=== PATIENT | female | born 1950 | race Caucasian/White ===

== ENCOUNTER 2016-11-04 10:26 | Emergency (ER) | payer OTHER ==
[~2016-11-04] VITALS: Ht 170.2 cm; Wt 65.9 kg
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
[2016-11-04 10:31] VITALS: BP 149/73; PULSE 78; RESP 20; O2SAT 99
[2016-11-04] MEDS ORDERED: Ondansetron 2 mg/mL 2 mL Inj IVPUSH PRN (10:50)
[2016-11-04 11:11] VITALS: BP 142/74; PULSE 75; RESP 20; O2SAT 98
[2016-11-04] MEDS: HYDROmorphone 0.5 mg/0.5 mL iSecure Syringe IVPUSH PRN ×2 (11:19→12:05)
[2016-11-04 11:20] LABS: BASOPHILS % (AUTO) 0 % (0-3); EOSINOPHILS % (AUTO) 0.6 % (0-5); MONOCYTES % (AUTO) 5.8 % (4-12); Mean Corpuscular Volume 89.6 fL (81-100); NEUTROPHILS % (AUTO) 75.1 % (40-74); Platelet Count 202 bil/L (150-400)
[2016-11-04 11:33] LABS: INR 0.94 ratio
[2016-11-04 11:48] LABS: APPEARANCE,URINE HAZY (CLEAR,HAZY); COLOR,URINE STRAW (YELLOW); OCCULT BLOOD,URINE NEGATIVE (NEGATIVE); UROBILINOGEN,URINE NORMAL (NORMAL)
[2016-11-04 11:53] VITALS: BP 137/75; PULSE 78; RESP 20; O2SAT 100
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
[2016-11-04 13:51] VITALS: BP 125/84; PULSE 74; RESP 20; O2SAT 98
[2016-11-04] MEDS ORDERED: CYCL5TAB PO (13:51)
[2016-11-04] MEDS ORDERED: HYDR-4003 PO (13:51)
[2016-11-04 14:16] VITALS: BP 126/79; PULSE 74; RESP 16; O2SAT 98
== END 2016-11-04 14:17 | disposition home or self-care (01) ==
LOC: SED 10:26
DX: S06.0X0A Concussion without loss of consciousness, initial encounter (principal); S16.1XXA Strain of muscle, fascia and tendon at neck level, initial encounter; V43.51XA Car driver injured in collision with sport utility vehicle in traffic accident, initial encounter; Y92.410 Unspecified street and highway as the place of occurrence of the external cause; Y93.89 Activity, other specified; Y99.8 Other external cause status; R91.8 Other nonspecific abnormal finding of lung field; R40.2412 Glasgow coma scale score 13-15, at arrival to emergency department; F32.9 Major depressive disorder, single episode, unspecified
CPT/HCPCS: 36415; 70450; 71260; 72125; 74177; 80053; 81001; 85025; 85610; 85730; 86850; 93005; 96374; 96375; 96376; 99285; J1170; J2405; Q9967